=== PATIENT | female | born 1995 | race Caucasian/White ===

== ENCOUNTER 2019-02-05 22:06 | Emergency (ER) | payer OTHER ==
[2019-02-05 22:22] VITALS: BP 117/75; PULSE 82; TEMP 98.4; BMI 29.7
--- NOTE | 2019-02-05 23:32 | PDOC ---
History of Present Illness - General Chief Complaint: Cold Symptoms Stated Complaint: INFECTION Time Seen by Provider: 02/05/19 23:09 History Source: Patient, Significant Other (Boyfriend present at bedside.) Exam Limitations: No Limitations - History of Present Illness Initial Comments: HPI: 23 y/o female presenting to [facility] ER complaining of bilateral red eyes with purulent discharge. Showed picture of discharge on cell phone. Endorses blurry vision and discomfort with eye movement. Wears contacts daily. Changed this afternoon thinking this was the cause of her symptoms. No change in symptoms. Remote h/o of pink eye but states this feels different. Endorses recent URI symptoms with sore throat and bilateral swollen lymph nodes. Symptoms resolved yesterday. [place]s [place] clinic [place]. Medical Hx: - Eczema - Seasonal Allergies Surgical Hx: - (07/2015) Past History - Past Medical History Allergies/Adverse Reactions: Allergies Allergy/AdvReac Type Severity Reaction Status Date / Time contact metal agent Allergy Mild Verified 02/05/19 23:15 pollen extracts Allergy Mild Verified 02/05/19 23:14 shellfish derived Allergy Mild Verified 02/05/19 23:14 Home Medications: Ambulatory Orders Ciprofloxacin 0.3% Eye Drops [Ciloxan 0.3% Eye Drops --] 1 drop OU ASDIR 7 Days #1 bottle 02/05/19 COPD: No Other medical history: eczema - Suicide/Smoking/Psychosocial Hx Smoking History: Never smoked Hx Alcohol Use: No Drug/Substance Use Hx: No Review of Systems - Review of Systems Able to Perform ROS?: Yes Comments:: In addition to that documented in the HPI above, the additional ROS was obtained : Constitutional: Denies fevers or chills ENMT: Denies acute sore throat CV: Denies chest pain Resp: Denies SOB GI: Denies vomiting or diarrhea : Denies dysuria, hematuria, or urinary frequency *Physical Exam - Vital Signs Last Vital Signs Temp Pulse Resp BP Pulse Ox 98.4 F 82 20 117/75 97 02/05/19 22:20 02/05/19 22:20 02/05/19 22:20 02/05/19 22:20 02/05/19 22:20 - Physical Exam Comments: Constitutional: Well-developed, well-nourished adult female in no acute distress or obvious discomfort. Found sitting upright on edge of hospital chair. Alert and oriented x4. Answered all questions appropriately and completely. Speech was non-labored, non-pressured. Head: Normocephalic. No obvious external signs of trauma. No frontal or maxillary sinus tenderness. Eyes: Bilateral injected conjunctiva with trace amount of clear discharge. Pupils 4mm and PERRL. EOMI with reported pain. Conjunctiva moist. Ears: Hearing grossly intact. Nose: No nasal discharge. Throat: Oral cavity and pharynx normal. No inflammation, swelling, exudate, or lesions. Teeth and gingiva in good general condition. Neck: Supple, trachea is midline. Cardiovascular / Chest: Regular rate and regular rhythm. No murmur, rubs, clicks, or gallops. Peripheral pulses: radial pulses full. Respiratory: Breathing unlabored. Equal chest rise and fall. Clear to auscultation bilaterally. No stridor, no wheezing, no rhonchi. Skin: Warm, dry, and intact. Psych: Affect: appropriate. Mood: normal. Medical Decision Making - Medical Decision Making *Reviewed vital signs, nursing notes, and prior visit documentation (if available). 23 y/o female presenting for bilateral conjunctival injection with picture of purulent discharge but watery discharge on exam. Suspect likely bacterial conjunctivitis. Low suspicion for foreign body or toxic inflammatory condition. Afebrile. Vitals unremarkable for hypotension or tachycardia. Low suspicion for systemic infection. Will prescribe ciprofloxacin ophthalmic solution and encourage pt to follow up with eye clinic of record. Will encourage pt to remove contacts for the next 7 to 10 days. *DC/Admit/Observation/Transfer Diagnosis at time of Disposition: Conjunctivitis, acute, bilateral Qualifiers: Acute conjunctivitis type: unspecified Qualified Code(s): H10.33 - Unspecified acute conjunctivitis, bilateral - Discharge Dispostion Disposition: HOME Condition at time of disposition: Good Decision to Admit order: No - Prescriptions Prescriptions: Ciprofloxacin 0.3% Eye Drops [Ciloxan 0.3% Eye Drops --] 1 drop OU ASDIR 7 Days #1 bottle - Referrals Referrals: ON STAFF,NOT [Primary Care Provider] - - Patient Instructions Printed Discharge Instructions: DI for Conjunctivitis Additional Instructions: You were seen today for red eyes with purulent discharge. Your symptoms are likely from a bacterial eye infection. You need to take your contacts out for the next 7 to 10 days. Be sure to wash your hands frequently to prevent the spread of the infection. have sent a prescription for an antibiotic eye drop to your pharmacy. Take as directed on the package insert. You can take over the counter Tylenol or Advil as needed for pain. Take as directed on the package insert. Do not exceed the recommended dosage. Follow up with your eye doctor within the next week to make sure you are healing. Go to the nearest emergency department if your condition worsens or you feel like you need additional emergency evaluation. Print Language: UZBEK - Post Discharge Activity
--- NOTE | 2019-02-05 23:57 | PDOC ---
Attending Attestation - HPI HPI: 02/06/19 00:09 The patient is a 23 year old female, with no significant past medical history, who presents to the emergency department with bilateral conjunctival injection and purulent drainage. She reports associated headache surrounding her eyes bilaterally. She states she wears contacts daily. The patient denies chest pain, shortness of breath, headache and dizziness. The patient denies fever, chills, nausea, vomit, diarrhea and constipation. The patient denies dysuria, frequency, urgency and hematuria. - Physicial Exam PE: 02/06/19 00:09 ROS: A complete review of 10 out of 10 review of systems is taken and is negative apart from what is previously mentioned below and in the HPI. Physical Exam Vitals: Triage vital signs reviewed General Appearance: No acute distress, well nourished, well developed Head: Atraumatic Eyes: (+) bilateral conjunctival injection. Pupils equal reactive round, extraocular movement intact Neck: Supple; No nuchal rigidity Chest Wall: Nontender Cardiac: Regular rate and rhythm, no murmurs, no rubs, no gallops Lungs: Clear to auscultation bilateral, good air movement bilaterally Abdomen: Soft, nondistended, normal bowel sounds, nontender to palpation Extremities: Full range of motion to all extremities, no cyanosis, clubbing, or edema Skin: Warm and dry, no rashes or lesions, no rash, no petechiae Neuro: AOX3; Cranial Nerves 2-12 grossly intact, Strength intact to all extremities, Sensation intact to all extremities, gait normal <Consuelo Mendiola - Last Filed: 02/06/19 00:09> - Resident Resident Name: Holden Noble - ED Attending Attestation I have performed the following: I have examined & evaluated the patient, The case was reviewed & discussed with the resident, I agree w/resident's findings & plan, Exceptions are as noted - Medical Decision Making 02/06/19 01:35 23 years old with bilateral conjunctivitis now with purulent discharge Given history of contact lens use we'll treat with ophthalmic ciprofloxacin Patient will discontinue contact lens use until infection is cleared Findings, need for follow-up and strict return instructions discussed with patient. <Vini Corral - Last Filed: 02/06/19 01:35> Attestations - Attestations 02/06/19 00:09 Documentation prepared by Consuelo Mendiola, acting as certified medical coding specialist for Vini Corral MD <Consuelo Mendiola - Last Filed: 02/06/19 00:09>
== END 2019-02-06 00:09 | disposition home or self-care (01) ==
LOC: JERFT 22:06 → JER 22:06
DX: H10.33 Unspecified acute conjunctivitis, bilateral (principal)
CPT/HCPCS: 99281-25

== ENCOUNTER 2019-03-06 23:08 | Emergency (ER) | payer OTHER ==
[2019-03-06 23:25] VITALS: BP 113/73; PULSE 57; TEMP 98.2; BMI 31.1
--- NOTE | 2019-03-07 00:49 | PDOC ---
History of Present Illness - General Chief Complaint: Eye Problem Stated Complaint: STY IN HER EYE LID Time Seen by Provider: 03/07/19 00:15 - History of Present Illness Initial Comments: 03/07/19 00:45 23 yo F with no significant pmh who p/w right lower eyelid swelling. Patient reports onset of right lower eyelid swelling beginning 03/04/19. Reports lead java software engineer visit today and advised to come to ED. Pt. unable to f/w ophthamology. Seen at urgent care and prescibed erythromycin ointment for involved eyelid swelling. Denies h/o similar symptoms. Also endorses progressive blurry vision, pain with eye movements, and excessive tearing. Denies drainage or discharge from eye. Wears corrective lenses. Attempted warm compresses x 2 days with absent relief. Patient denies SOW, palpitations, cough, wheezing, orthopena, PND, leg swelling/ pain, N/V, F,C, CP, SOB, urinary complaints, hematuria, BPR, abdominal pain, diarrhea, constipation, lightheadedness, weakness, sensory changes. PMHx: as noted above ROS: as noted Allergies: NKDA Past History - Past Medical History Allergies/Adverse Reactions: Allergies Allergy/AdvReac Type Severity Reaction Status Date / Time contact metal agent Allergy Mild Verified 03/07/19 01:44 pollen extracts Allergy Mild Verified 03/07/19 01:44 shellfish derived Allergy Mild Verified 03/07/19 01:44 Home Medications: Ambulatory Orders Cephalexin Monohydrate [Keflex -] 500 mg PO BID #14 capsule MDD 2 tab 03/07/19 COPD: No - Suicide/Smoking/Psychosocial Hx Smoking History: Never smoked Have you smoked in the past 12 months: No Information on smoking cessation initiated: No Hx Alcohol Use: No Drug/Substance Use Hx: No Review of Systems - Review of Systems Comments:: 03/07/19 00:59 GENERAL/CONSTITUTIONAL: No fever or chills. No weakness. HEAD, EYES, EARS, NOSE AND THROAT: + R eye lower lid swelling, change in vision. No ear pain or discharge. No sore throat. CARDIOVASCULAR: No chest pain or shortness of breath RESPIRATORY: No cough, wheezing, or hemoptysis. GASTROINTESTINAL: No nausea, vomiting, diarrhea or constipation. GENITOURINARY: No dysuria, frequency, or change in urination. MUSCULOSKELETAL: No joint or muscle swelling or pain. No neck or back pain. SKIN: No rash NEUROLOGIC: No headache, vertigo, loss of consciousness, or change in strength/ sensation. ENDOCRINE: No increased thirst. No abnormal weight change HEMATOLOGIC/LYMPHATIC: No anemia, easy bleeding, or history of blood clots. ALLERGIC/IMMUNOLOGIC: No hives or skin allergy. *Physical Exam - Vital Signs Last Vital Signs Temp Pulse Resp BP Pulse Ox 98.2 F 57 L 18 113/73 100 03/06/19 23:22 03/06/19 23:22 03/06/19 23:22 03/06/19 23:22 03/06/19 23:22 - Physical Exam Comments: 03/07/19 01:02 GENERAL: Awake, alert, and fully oriented, in no acute distress HEAD: No signs of trauma, normocephalic, atraumatic EYES: ttp, erythema, induration with yellow color change, at R medial lower lid margin. Asbent propotsisi, drainage or discharge, or erythema or swelling of surrounding tissues. PERRLA, EOMI, sclera anicteric, conjunctiva clear. 20/70 OD , 20/20 OS. ENT: Auricles normal inspection, hearing grossly normal, nares patent, oropharynx clear without exudates. Moist mucosa NECK: Normal ROM, supple, no lymphadenopathy, JVD, or masses LUNGS: No distress, speaks full sentences, clear to auscultation bilaterally HEART: Regular rate and rhythm, normal S1 and S2, no murmurs, rubs or gallops, peripheral pulses normal and equal bilaterally. ABDOMEN: Soft, nontender, normoactive bowel sounds. No guarding, no rebound. No masses EXTREMITIES : Normal inspection, Normal range of motion, no edema. No clubbing or cyanosis. NEUROLOGICAL: Cranial nerves II through XII grossly intact. Normal speech, normal gait, no focal sensorimotor deficits SKIN: Warm, Dry, normal turgor, no rashes or lesions noted Medical Decision Making - Medical Decision Making 03/07/19 00:58 23 yo F with no significant pmh who p/w right lower eyelid swelling, pain with EOM, and excessive tearing. Likely hordelum (stye) vs. chalazion. Vitals wnl, AF , A&OX3. Patient with ttp, erythema, induration with yellow color change, at R medial lower lid margin. Asbent drainage or discharge, or erythema or swelling of surrounding tissues. Although lack of proptosis, diplopia, chemosis, globe displacemnt there is pain with EOM, and vision 20/70 OID, and 20/20 OS. Low suspicion periorobital and orbital cellulitis. Failed compress therapy and topical antibacterial. Will prescribe oral Augmentin. 03/07/19 01:11 ED Course: Keflex sent to pharmacy 03/07/19 01:35 Patient advised to f/u opthamology Urine preg: neg Stable for d/c with return precautions. *DC/Admit/Observation/Transfer Diagnosis at time of Disposition: Hordeolum externum (stye) Qualifiers: Laterality: right Eyelid: lower Qualified Code(s): H00.012 - Hordeolum externum right lower eyelid - Discharge Dispostion Condition at time of disposition: Stable Decision to Admit order: No - Prescriptions Prescriptions: Cephalexin Monohydrate [Keflex -] 500 mg PO BID #14 capsule MDD 2 tab - Referrals Referrals: Juan Lemus [Non Staff, Medical] - - Patient Instructions Printed Discharge Instructions: DI for Hordeolum Additional Instructions: Please return to the emergency department with any new or worsening symptoms or concerns. Please follow up with your primary care physician and opthamologist within 72 hours. Please take Keflex two times a day for 1 week. Continue with warm compresses of the eye daily every 2-3 hours. Continue with Motrin 600 mg every 4-6 hours. - Post Discharge Activity
[2019-03-07] MEDS ORDERED: AMOX TR/POT CLAV 875MG/125MG TABLETS (FP) PO ONE (01:07)
[2019-03-07] MEDS ORDERED: AMOX TR/POT CLAV 875MG/125MG TABLETS (FP) ONE (01:32)
[2019-03-07 01:50] LABS: URINE APPEARANCE CLEAR; URINE BILIRUBIN NEGATIVE (NEGATIVE); URINE COLOR DK YELLOW; URINE GLUCOSE (UA) NEGATIVE (NEGATIVE); URINE KETONE NEGATIVE (NEGATIVE); URINE LEUK ESTERASE NEGATIVE (NEGATIVE); URINE NITRITE NEGATIVE (NEGATIVE); URINE PROTEIN NEGATIVE (NEGATIVE); URINE UROBILINOGEN 0.2 mg/dL (0.2-1.0)
[2019-03-07 01:53] LABS: HCG,QUALITATIVE URINE Negative
--- NOTE | 2019-03-07 01:56 | PDOC ---
Documentation entered by Mahogany Solis SCRIBE, acting as scribe for Amarilys Fernando MD. Aamrilys Fernando MD: This documentation has been prepared by the scribe, Mahogany Solis SCRIBE, under my direction and personally reviewed by me in its entirety. I confirm that the documentation accurately reflects all work, treatment, procedures, and medical decision making performed by me. Attending Attestation - Resident Resident Name: Nick Wellington - ED Attending Attestation I have performed the following: I have examined & evaluated the patient, The case was reviewed & discussed with the resident, I agree w/resident's findings & plan - HPI HPI: 03/07/19 01:52 Ms. Klein is a 23 year old female with no reported past medical history presents to the emergency department with right lower eyelid swelling. The patient presents with 3 days of swelling to the right lower/inner eyelid, which initially started with a pimple in the area.. The patient reports following up at an , where she was prescribed erythromycin ointment. The patient reports seeing her tangible personal property appraiser, who referred the patient to the ER. Denies blurry vision, diplopia, or changes in vision. no fever or chills. some pain with eye movements. no active drainage from site. unable to follow up with ophtho as outpatient 03/07/19 01:57 - Physicial Exam PE: 03/07/19 01:53 NAD, well appearing, EOMI and PERRL. rt inner lower medial canthus site with erythema, tenderness and swelling. no proptosis. no nystagmus. soft globe. visual acuity bilaterally intact, 20/70 in right, 20/20 in left. CN II-XII grossly intact. neck supple. no respiratory distress. 2+ pulses throughout. WWP. - Medical Decision Making 03/07/19 01:54 hpi as documented VS reviewed wnl. no fever no ocular involvement, no orbital cellulitis appears to be infected stye. no indication for drainage, defer to outpatient ophtho referral oral keflex x 1 week course, can c/w erythromycin topically. cover for possible early preseptal cellulitis/infected stye. warm compresses to area, Q2-4 hr, analgesia with nsaids for antiinflammatory component. Pt to be discharged in stable condition. Patient and family made aware of impression and plan, return precautions discussed (including but not limited to worsening pain or symptoms), fevers, or signs of infection, chest pain, respiratory distress, inability to tolerate oral intake, dehydration, syncope, or neurologic changes). Follow up with PMD and/or specialist as recommended, follow up information provided - recommended hot iron worker doctor Dr Reed, take medications as instructed for duration of time. continue with supportive care, avoid triggers and precipitants. All questions answered to patient's satisfaction and expressed understanding and comfort with this. Patient does not suffer from an acute life-threatening medical condition at this time she is safe for outpatient follow-up. 03/07/19 01:57
== END 2019-03-07 02:27 | disposition home or self-care (01) ==
LOC: JER 23:08
DX: H00.012 Hordeolum externum right lower eyelid (principal)
CPT/HCPCS: 81003; 84703; 99281-25

== ENCOUNTER 2019-10-09 13:08 | Emergency (ER) | payer OTHER ==
[2019-10-09 13:40] VITALS: BP 121/63; PULSE 79; TEMP 98.3; BMI 33.3
[2019-10-09] MEDS ORDERED: SUMAtriptan SUCCINATE 50 MG TABLET PO SCH (14:45)
[2019-10-09] MEDS ORDERED: SUMAtriptan SUCCINATE 50 MG TABLET ONE (14:51)
--- NOTE | 2019-10-09 14:55 | PDOC ---
History of Present Illness - General Chief Complaint: Headache Stated Complaint: MIGRAINE HEADACHE Time Seen by Provider: 10/09/19 14:11 History Source: Patient Exam Limitations: Clinical Condition - History of Present Illness Initial Comments: 10/09/19 14:49 Patient with past medical history of blood clot on Lovenox and 12 weeks presented with complaint of 2-day history of persistent headache with photophobia. Patient reports taking Tylenol yesterday for headache but headache has been persistent. Reported headache was intermittent yesterday but has been constant today. Patient also reported spinning sensation since today. Denies head trauma or lightheadedness. Patient also report intermittent sharp abdominal pain for 2 days now. Denies vaginal bleeding, discharge. Denies urinary frequency, dysuria or burning with urination. Denies any other symptoms Timing/Duration: reports: 24 hours Past History - Past Medical History Allergies/Adverse Reactions: Allergies Allergy/AdvReac Type Severity Reaction Status Date / Time contact metal agent Allergy Mild Verified 03/07/19 01:44 pollen extracts Allergy Mild Verified 10/09/19 13:35 shellfish derived Allergy Mild Verified 03/07/19 01:44 blue aqua gel Allergy Uncoded 10/09/19 13:36 Home Medications: Ambulatory Orders Enoxaparin Sodium [Lovenox] 100 mg SQ ASDIR 10/09/19 Sumatriptan Succinate [Imitrex] 25 mg PO Q6H PRN #20 tablet 10/09/19 COPD: No Other medical history: dvt liver and ovary - Psycho Social/Smoking Cessation Hx Smoking History: Never smoked Have you smoked in the past 12 months: No Hx Alcohol Use: No Drug/Substance Use Hx: No Review of Systems - Review of Systems Able to Perform ROS?: Yes Is the patient limited Georgian proficient: No Constitutional: No: Chills, Fever, Malaise HEENTM: Yes: Symptoms Reported, See HPI, Other (photophobia). No: Eye Pain, Blurred Vision, Tearing, Recent change in vision, Double Vision, Cataracts, Ear Pain, Ocular Prothesis, Ear Discharge, Nose Pain, Nose Congestion, Tinnitus, Nose Bleeding, Hearing Loss, Throat Pain, Throat Swelling, Mouth Pain, Dental Problems, Difficulty Swallowing, Mouth Swelling Respiratory: No: Symptoms reported, See HPI, Cough, Orthopnea, Shortness of Breath, SOB with Exertion, SOB at Rest, Stridor, Wheezing, Productive cough, Hemoptysis, Other Cardiac (ROS): No: Symptoms Reported, See HPI, Chest Pain, Edema, Irregular Heart Rate, Lightheadedness, Palpitations, Syncope, Chest Tightness, Other ABD/GI: Yes: Symptoms Reported, Nausea, Abdominal cramping (intermittent sharp lower abd pains). No: Vomiting : No: Symptoms Reported, Burning, Dysuria, Discharge, Frequency, Urgency Musculoskeletal: No: Symptoms Reported Integumentary: No: Symptoms Reported Neurological: Yes: Symptoms reported, See HPI, Headache. No: Numbness, Paresthesia, Pre-Existing Deficit, Seizure, Unsteady Gait, Ataxia, Dizziness All Other Systems: Reviewed and Negative *Physical Exam - Vital Signs Last Vital Signs Temp Pulse Resp BP Pulse Ox 98.3 F 79 18 121/63 98 10/09/19 13:38 10/09/19 13:38 10/09/19 13:38 10/09/19 13:38 10/09/19 13:38 - Physical Exam 10/09/19 14:54 GENERAL: Well developed, well nourished. Awake and alert. No acute distress. HEENT: Normocephalic, atraumatic. PERRLA, EOMI. No conjunctival pallor. Sclera are non- icteric. Moist mucous membranes. Oropharynx is clear. NECK: Supple. Full ROM. No JVD. Carotid pulses 2+ and symmetric, without bruits. No thyromegaly. No lymphadenopathy. CARDIOVASCULAR: Regular rate and rhythm. No murmurs, rubs, or gallops. Distal pulses are 2+ and symmetric. PULMONARY: No evidence of respiratory distress. Lungs clear to auscultation bilaterally. No wheezing, rales or rhonchi. ABDOMINAL: Soft. Non-tender. Non-distended. No rebound or guarding. No organomegaly. Normoactive bowel sounds. MUSCULOSKELETAL Normal range of motion at all joints. No bony deformities or tenderness. No CVA tenderness. EXTREMITIES: No cyanosis. No clubbing. No edema. No calf tenderness. SKIN: Warm and dry. Normal capillary refill. No rashes. No jaundice. NEUROLOGICAL: Alert, awake, appropriate. Cranial nerves 2-12 intact. No motor deficits in the in face, upper extremities and lower extremities. Normal speech. Toes are down- going bilaterally. Gait is normal without ataxia. PSYCHIATRIC: Cooperative. Good eye contact. Appropriate mood and affect. General Appearance: Yes: Nourished, Appropriately Dressed. No: Apparent Distress ED Treatment Course - RADIOLOGY Radiology Studies Ordered: Category Date Time Status <14WKS US [US] Stat Ultrasound 10/09/19 14:45 Ordered Medical Decision Making - Medical Decision Making 10/09/19 14:51 Patient with past medical history of blood clot on Lovenox and 12 weeks presented with complaint of 2-day history of persistent headache with photophobia. Patient reports taking Tylenol yesterday for headache but headache has been persistent. Reported headache was intermittent yesterday but has been constant today. Patient also reported spinning sensation since today. Denies head trauma or lightheadedness. Patient also report intermittent sharp abdominal pain for 2 days now. Denies vaginal bleeding, discharge. Denies urinary frequency, dysuria or burning with urination. Denies any other symptomsClinical exam unremarkable with normal neuro exam. Symptoms likely migraine for with aura. Imitrex 50 milligrams p.o. ordered for headache. Abdominal ultrasound ordered to evaluate . Reassess after half an hour 10/09/19 16:08 Abdominal ultrasound shows live IUP of 13 weeks with FH. Patient reported complete improvement to headaches with Imitrex and Zofran. Patient stable for discharge on Imitrex as needed for headache with [employer] follow-up. Patient advised to come to the emergency room immediately if worsening headache with dizziness or any new symptoms Discharge - Discharge Information Problems reviewed: Yes Clinical Impression/Diagnosis: 9-13 weeks gestation of Migraine headache with aura Qualifiers: Status migrainosus presence: without status migrainosus Intractability: not intractable Qualified Code(s): G43.109 - Migraine with aura, not intractable, without status migrainosus Condition: Improved Disposition: HOME - Admission No - Additional Discharge Information Prescriptions: Sumatriptan Succinate [Imitrex] 25 mg PO Q6H PRN #20 tablet PRN Reason: headache - Follow up/Referral - Patient Discharge Instructions Patient Printed Discharge Instructions: DI for Hormonal and Tension Headaches Additional Instructions: Abdominal ultrasound was normal and showed 13 weeks with likely baby. Your headaches likely caused by hormonal change from . Take prescribed medication as needed for headache. Follow-up with your [employer]LE P[employer]ER. Come back to emergency room if worsening headache with dizziness with nausea vomiting - Post Discharge Activity
[2019-10-09] MEDS ORDERED: ONDANSETRON *ODT* 4 MG TABLET SL ONE (15:39)
[2019-10-09] MEDS ORDERED: ONDANSETRON *ODT* 4 MG TABLET ONE (15:40)
== END 2019-10-09 16:29 | disposition home or self-care (01) ==
LOC: JERFT 13:08 → JER 13:08 → JERFT 16:29
DX: O26.891 Other specified pregnancy related conditions, first trimester (principal); G43.109 Migraine with aura, not intractable, without status migrainosus; Z86.718 Personal history of other venous thrombosis and embolism; Z3A.12 12 weeks gestation of pregnancy; Z91.013 Allergy to seafood; Z91.048 Other nonmedicinal substance allergy status
CPT/HCPCS: 76801-TC; 99281-25; Q0162

== ENCOUNTER 2019-11-17 19:12 | Emergency (ER) | payer OTHER ==
--- NOTE | 2019-11-17 20:00 | PDOC ---
Rapid Medical Evaluation Medical Evaluation: Allergies Allergy/AdvReac Type Severity Reaction Status Date / Time contact metal agent Allergy Mild Verified 03/07/19 01:44 pollen extracts Allergy Mild Verified 10/09/19 13:35 shellfish derived Allergy Mild Verified 03/07/19 01:44 blue aqua gel Allergy Uncoded 10/09/19 13:36 11/17/19 19:49 I have performed a brief in-person evaluation of this patient. The patient presents with a chief complaint of: Flu + at [facility] today, here w/ worsening of sxs. State she passed out while in bed this afternoon. Currently 19 weeks . No abd pain, n/v/f/c. H/o blood clots (liver and "top" of ovary), on lovenox since last April Pertinent physical exam findings:Stable, christina uncomfortable I have ordered the following:labs The patient will proceed to the ED for further evaluation Discharge Disposition - Diagnosis Flu - Referrals - Patient Instructions - Post Discharge Activity
[2019-11-17 20:02] VITALS: BMI 30.9
[2019-11-17] MEDS ORDERED: SODIUM CHLORIDE 1,000 ML IV STA ×2 (21:14→23:19)
[2019-11-17] MEDS ORDERED: ACETAMINOPHEN 1000 MG/100 ML VIAL (NON FORMULARY) IVPB ONE (21:14)
[2019-11-17] MEDS ORDERED: ACETAMINOPHEN INJECTION 100 ML IVPB ONE (21:32)
[2019-11-17 21:48] LABS: BASO % 0.8 % (0-2.0); EOS % 2.3 % (0-4.5); HEMOGLOBIN 11.3 GM/dL (10.7-15.3); LYMPH % 14.3 % (8-40); MCH 30.1 pg (25.7-33.7); MCHC 33.2 g/dl (32.0-36.0); MEAN CELL VOLUME 90.8 fl (80-96); MEAN PLT VOLUME 8.1 fl (7.5-11.1); MONO % 7.6 % (3.8-10.2); PLATELET COUNT 260 K/MM3 (134-434); RBC 3.75 M/mm3 (3.60-5.2); RDW 13.7 % (11.6-15.6); WHITE BLOOD COUNT 8.4 K/mm3 (4.0-10.0)
[2019-11-17] MEDS ORDERED: LEVALBUTEROL HCL 0.31 MG/3 ML VIAL.NEB IH ONE (22:03)
[2019-11-17 22:18] LABS: ALK PHOS 101 U/L (45-117); ANION GAP 7 MMOL/L (8-16); BILIRUBIN,TOTAL < 0.1 mg/dL (0.2-1); BLOOD UREA NITROGEN 6.3 mg/dL (7-18); CALCIUM 8.6 mg/dL (8.5-10.1); CHLORIDE 107 mmol/L (98-107); CO2 25 mmol/L (21-32); CREATININE 0.5 mg/dL (0.55-1.3); GLUCOSE,RANDOM 88 mg/dL (74-106); POTASSIUM 3.9 mmol/L (3.5-5.1); SGOT/AST 13 U/L (15-37); SGPT/ALT 38 U/L (13-61); SODIUM 138 mmol/L (136-145); TOT PROT 6.6 g/dl (6.4-8.2)
[2019-11-17 22:29] LABS: PH,URINE 7.5 (5.0-8.0); URINE APPEARANCE TURBID; URINE BILIRUBIN NEGATIVE (NEGATIVE); URINE COLOR YELLOW; URINE GLUCOSE (UA) NEGATIVE (NEGATIVE); URINE KETONE NEGATIVE (NEGATIVE); URINE LEUK ESTERASE NEGATIVE (NEGATIVE); URINE NITRITE NEGATIVE (NEGATIVE); URINE PROTEIN NEGATIVE (NEGATIVE)
[2019-11-17] MEDS ORDERED: METOCLOPRAMIDE HCL INJECTION 10 MG/2 ML VIAL IVPB ONE (23:19)
--- NOTE | 2019-11-17 23:19 | PDOC ---
History of Present Illness <AidaDorotaAgustina - Last Filed: 11/18/19 00:33> <Madina Stout - Last Filed: 11/18/19 01:36> - General Chief Complaint: Cold Symptoms Stated Complaint: FLU Time Seen by Provider: 11/17/19 20:01 Past History - Past Medical History COPD: No - Psycho Social/Smoking Cessation Hx Smoking History: Never smoked Have you smoked in the past 12 months: No Information on smoking cessation initiated: No Hx Alcohol Use: No Drug/Substance Use Hx: No <AidaDorotaAgustina - Last Filed: 11/18/19 00:33> <Madina Stout - Last Filed: 11/18/19 01:36> - Past Medical History Allergies/Adverse Reactions: Allergies Allergy/AdvReac Type Severity Reaction Status Date / Time contact metal agent Allergy Mild Verified 11/17/19 20:02 pollen extracts Allergy Mild Verified 11/17/19 20:02 shellfish derived Allergy Mild Verified 11/17/19 20:02 blue aqua gel Allergy Uncoded 11/17/19 20:02 Home Medications: Ambulatory Orders Enoxaparin Sodium [Lovenox] 100 mg SQ ASDIR 10/09/19 Sumatriptan Succinate [Imitrex] 25 mg PO Q6H PRN #20 tablet 10/09/19 Albuterol Sulfate Inhaler - [Ventolin HFA Inhaler -] 1 - 2 inh PO Q4H #1 inhaler 11/18/19 Metoclopramide HCl [Reglan -] 10 mg PO TID #21 tablet 11/18/19 *Physical Exam - Vital Signs Last Vital Signs Temp Pulse Resp BP Pulse Ox 98.1 F 96 H 18 113/71 100 11/17/19 19:59 11/17/19 19:59 11/17/19 19:59 11/17/19 19:59 11/17/19 19:59 <Agustina Parra - Last Filed: 11/18/19 00:33> - Vital Signs Last Vital Signs Temp Pulse Resp BP Pulse Ox 97.8 F 93 H 18 114/71 99 11/18/19 01:03 11/18/19 01:03 11/18/19 01:03 11/18/19 01:03 11/18/19 01:03 <Madina Stout - Last Filed: 11/18/19 01:36> ED Treatment Course - LABORATORY CBC & Chemistry Diagram: 11/17/19 21:40 11/17/19 21:40 - ADDITIONAL ORDERS Additional order review: Laboratory Results 11/17/19 11/17/19 22:20 21:40 Sodium 138 Potassium 3.9 Chloride 107 Carbon Dioxide 25 Anion Gap 7 L BUN 6.3 L Creatinine 0.5 L Est GFR (CKD-EPI)AfAm 155.90 Est GFR (CKD-EPI)NonAf 134.52 Random Glucose 88 Calcium 8.6 Total Bilirubin < 0.1 L AST 13 L ALT 38 Alkaline Phosphatase 101 Total Protein 6.6 Albumin 3.0 L Urine Color Yellow Urine Appearance Turbid Urine pH 7.5 D Ur Specific [place] 1.019 Urine Protein Negative Urine Glucose (UA) Negative Urine Ketones Negative Urine Blood Negative Urine Nitrite Negative Urine Bilirubin Negative Urine Urobilinogen 1.0 Ur Leukocyte Esterase Negative 11/17/19 21:40 RBC 3.75 MCV 90.8 MCHC 33.2 RDW 13.7 MPV 8.1 Neutrophils % 75.0 Lymphocytes % 14.3 Monocytes % 7.6 Eosinophils % 2.3 Basophils % 0.8 - Medications Given in the ED: ED Medications Discontinued Medications Generic Name Dose Route Start Last Admin Trade Name Sam PRN Reason Stop Dose Admin Acetaminophen 1,000 mg 11/17/19 21:14 11/17/19 21:43 Ofirmev Injection - IVPB 11/17/19 21:15 1,000 mg ONCE ONE Administration Sodium Chloride 1,000 mls @ 1,000 mls/hr 11/17/19 21:14 11/17/19 22:15 Normal Saline - IV 11/17/19 22:13 1,000 mls/hr ASDIR STA Administration Levalbuterol HCl 0.31 mg 11/17/19 22:03 11/17/19 23:14 Xopenex IH 11/17/19 22:04 0.31 mg ONCE ONE Administration <Agustina Parra - Last Filed: 11/18/19 00:33> - LABORATORY CBC & Chemistry Diagram: 11/17/19 21:40 11/17/19 21:40 - ADDITIONAL ORDERS Additional order review: Laboratory Results 11/17/19 11/17/19 22:20 21:40 Sodium 138 Potassium 3.9 Chloride 107 Carbon Dioxide 25 Anion Gap 7 L BUN 6.3 L Creatinine 0.5 L Est GFR (CKD-EPI)AfAm 155.90 Est GFR (CKD-EPI)NonAf 134.52 Random Glucose 88 Calcium 8.6 Total Bilirubin < 0.1 L AST 13 L ALT 38 Alkaline Phosphatase 101 Total Protein 6.6 Albumin 3.0 L Urine Color Yellow Urine Appearance Turbid Urine pH 7.5 D Ur Specific [place] 1.019 Urine Protein Negative Urine Glucose (UA) Negative Urine Ketones Negative Urine Blood Negative Urine Nitrite Negative Urine Bilirubin Negative Urine Urobilinogen 1.0 Ur Leukocyte Esterase Negative 11/17/19 21:40 RBC 3.75 MCV 90.8 MCHC 33.2 RDW 13.7 MPV 8.1 Neutrophils % 75.0 Lymphocytes % 14.3 Monocytes % 7.6 Eosinophils % 2.3 Basophils % 0.8 - Medications Given in the ED: ED Medications Discontinued Medications Generic Name Dose Route Start Last Admin Trade Name Freq PRN Reason Stop Dose Admin Acetaminophen 1,000 mg 11/17/19 21:14 11/17/19 21:43 Ofirmev Injection - IVPB 11/17/19 21:15 1,000 mg ONCE ONE Administration Diphenhydramine HCl 12.5 mg 11/17/19 23:19 11/17/19 23:25 Benadryl Injection - IVPB 11/17/19 23:20 12.5 mg ONCE ONE Administration Sodium Chloride 1,000 mls @ 1,000 mls/hr 11/17/19 21:14 11/17/19 22:15 Normal Saline - IV 11/17/19 22:13 1,000 mls/hr ASDIR STA Administration Sodium Chloride 1,000 mls @ 1,000 mls/hr 11/17/19 23:19 11/17/19 23:25 Normal Saline - IV 11/18/19 00:18 1,000 mls/hr ASDIR STA Administration Levalbuterol HCl 0.31 mg 11/17/19 22:03 11/17/19 23:14 Xopenex IH 11/17/19 22:04 0.31 mg ONCE ONE Administration Metoclopramide HCl 10 mg 11/17/19 23:19 11/17/19 23:25 Reglan Injection - IVPB 11/17/19 23:20 10 mg ONCE ONE Administration <Madina Stout - Last Filed: 11/18/19 01:36> Discharge - Admission No <Agustina Parra - Last Filed: 11/18/19 00:33> - Discharge Information Problems reviewed: Yes <Madina Stout - Last Filed: 11/18/19 01:36> - Discharge Information Clinical Impression/Diagnosis: Flu, Dehydration Condition: Stable Disposition: HOME - Additional Discharge Information Prescriptions: Albuterol Sulfate Inhaler - [Ventolin HFA Inhaler -] 1 - 2 inh PO Q4H #1 inhaler Metoclopramide HCl [Reglan -] 10 mg PO TID #21 tablet - Patient Discharge Instructions Patient Printed Discharge Instructions: DI for Influenza -- Adult Additional Instructions: You have the flu. This is a virus that will get better on its own in approximately 7-10 days. You will most likely have a fever for 7-10 days because of the flu. This is to be expected. You may take the Reglan every 8 hours as needed for nausea. Use the albuterol inhaler every 4 hours as needed for shortness of breath. Drink plenty of fluids to prevent dehydration and get plenty of rest. Warm tea and cough drops may help your symptoms as well. Take Tylenol as directed for pain and fever. Take all other medications as prescribed. Follow up with your primary care doctor this week Return to the ED for difficulty breathing, shortness of breath, weakness, or if you have any other changes in your symptoms. - Post Discharge Activity
[2019-11-17] MEDS ORDERED: METOCLOPRAMIDE HCL INJECTION 10 MG/2 ML VIAL ONE (23:27)
[2019-11-18 01:04] VITALS: BP 114/71; PULSE 93; TEMP 97.8
--- NOTE | 2019-11-18 11:49 | EKG ---
Test Reason : Blood Pressure : / mmHG Vent. Rate : 097 BPM Atrial Rate : 097 BPM P-R Int : 146 ms QRS Dur : 074 ms QT Int : 344 ms P-R-T Axes : 039 031 012 degrees QTc Int : 436 ms NORMAL SINUS RHYTHM POSSIBLE LEFT ATRIAL ENLARGEMENT BORDERLINE ECG NO PREVIOUS ECGS AVAILABLE Confirmed by OMID SAHU MD ([id number]) on 11/18/2019 11:49:44 AM Referred By: Confirmed By:OMID SAHU MD
== END 2019-11-18 00:45 | disposition home or self-care (01) ==
LOC: JER 19:12
PROC: 3E0F7GC Introduction of Other Therapeutic Substance into Respiratory Tract, Via Natural or Artificial Opening (ICD-10-PCS; principal; 2019-11-17)
PROC: 3E0337Z Introduction of Electrolytic and Water Balance Substance into Peripheral Vein, Percutaneous Approach (ICD-10-PCS; 2019-11-17)
PROC: 3E033GC Introduction of Other Therapeutic Substance into Peripheral Vein, Percutaneous Approach (ICD-10-PCS; 2019-11-17)
PROC: 3E033GC Introduction of Other Therapeutic Substance into Peripheral Vein, Percutaneous Approach (ICD-10-PCS; 2019-11-17)
PROC: 3E033NZ Introduction of Analgesics, Hypnotics, Sedatives into Peripheral Vein, Percutaneous Approach (ICD-10-PCS; 2019-11-17)
DX: O99.89 Other specified diseases and conditions complicating pregnancy, childbirth and the puerperium (principal); E86.0 Dehydration; O98.512 Other viral diseases complicating pregnancy, second trimester; J10.1 Influenza due to other identified influenza virus with other respiratory manifestations; Z86.718 Personal history of other venous thrombosis and embolism; Z79.01 Long term (current) use of anticoagulants; Z3A.19 19 weeks gestation of pregnancy
CPT/HCPCS: 36415; 80053; 81003; 85025; 93005; 93010; 99284-25; J0131; J7030

== ENCOUNTER 2021-03-05 15:43 | Emergency (ER) | payer OTHER ==
[2021-03-05 16:12] VITALS: BP 122/83; PULSE 76; TEMP 98.5; BMI 35.9
[2021-03-05] MEDS ORDERED: LIDOCAINE 5% TOPICAL PATCH TP ONE (16:31)
[2021-03-05] MEDS ORDERED: diazePAM 5 MG TABLET PO ONE (16:31)
[2021-03-05] MEDS ORDERED: KETOROLAC TROMETHAMINE 30 MG/1 ML VIAL IM ONE (16:31)
[2021-03-05] MEDS ORDERED: LIDOCAINE 5% TOPICAL PATCH ONE (17:16)
[2021-03-05] MEDS ORDERED: diazePAM 5 MG TABLET ONE (17:17)
[2021-03-05] MEDS ORDERED: KETOROLAC TROMETHAMINE 30 MG/1 ML VIAL ONE (17:17)
[2021-03-06] MEDS ORDERED: LIDOCAINE PATCH REMOVAL MC SCH (04:30)
== END 2021-03-05 17:24 | disposition home or self-care (01) ==
LOC: JERFT 15:43
PROC: 3E0233Z Introduction of Anti-inflammatory into Muscle, Percutaneous Approach (ICD-10-PCS; principal; 2021-03-05)
DX: M62.838 Other muscle spasm (principal)
CPT/HCPCS: 99284-25

== ENCOUNTER 2021-04-08 11:48 | Emergency (ER) | payer OTHER ==
[2021-04-08 11:56] VITALS: TEMP 98.1; BMI 35.9
[2021-04-08] MEDS ORDERED: ACETAMINOPHEN 1000 MG/100 ML VIAL (NON FORMULARY) IVPB ONE (12:21)
[2021-04-08] MEDS ORDERED: SODIUM CHLORIDE 1,000 ML IV STA (12:21)
[2021-04-08] MEDS ORDERED: ONDANSETRON 4 MG/2 ML VIAL IVPUSH ONE ×2 (12:21→20:02)
[2021-04-08] MEDS ORDERED: ACETAMINOPHEN INJECTION 100 ML IVPB ONE (12:47)
[2021-04-08] MEDS ORDERED: ONDANSETRON 4 MG/2 ML VIAL ONE ×2 (12:47→20:05)
[2021-04-08 13:05] LABS: BASO % 0.4 % (0-2.0); EOS % 2.8 % (0-4.5); HEMATOCRIT 37.7 % (32.4-45.2); LYMPH % 22.3 % (8-40); MCH 30.4 pg (25.7-33.7); MCHC 34.5 g/dl (32.0-36.0); MEAN CELL VOLUME 88.1 fl (80-96); MEAN PLT VOLUME 8.1 fl (7.5-11.1); MONO % 5.1 % (3.8-10.2); NEUT % 69.4 % (42.8-82.8); PLATELET COUNT 346 K/MM3 (134-434); RBC 4.28 M/mm3 (3.60-5.2); WHITE BLOOD COUNT 7.4 K/mm3 (4.0-10.0)
[2021-04-08 13:11] LABS: PH,URINE 7.5 (5.0-8.0); URINE APPEARANCE CLOUDY; URINE BILIRUBIN NEGATIVE (NEGATIVE); URINE COLOR YELLOW; URINE GLUCOSE (UA) NEGATIVE (NEGATIVE); URINE KETONE NEGATIVE (NEGATIVE); URINE LEUK ESTERASE NEGATIVE (NEGATIVE); URINE NITRITE NEGATIVE (NEGATIVE); URINE PROTEIN NEGATIVE (NEGATIVE); URINE UROBILINOGEN 0.2 mg/dL (0.2-1.0)
[2021-04-08 13:13] LABS: HCG,QUALITATIVE URINE Negative
[2021-04-08 13:24] LABS: CALCIUM 9.1 mg/dL (8.5-10.1)
[2021-04-08 13:25] LABS: BLOOD UREA NITROGEN 12.5 mg/dL (7-18)
[2021-04-08 13:28] LABS: CREATININE 0.6 mg/dL (0.55-1.3)
[2021-04-08 13:29] LABS: BILIRUBIN,TOTAL 0.2 mg/dL (0.2-1); TOT PROT 7.6 g/dl (6.4-8.2)
[2021-04-08] MEDS ORDERED: morphine CARPU-JECT 4 MG/1 ML DISP.SYRIN IVPUSH ONE ×2 (14:21→17:09)
[2021-04-08] MEDS ORDERED: morphine SULFATE 4 MG/ML VIAL ONE ×2 (14:30→17:17)
[2021-04-08] MEDS ORDERED: KETOROLAC TROMETHAMINE 60 MG/2 ML VIAL IVPUSH ONE (19:51)
[2021-04-08] MEDS ORDERED: KETOROLAC TROMETHAMINE 15 MG/ML VIAL ONE (19:54)
[2021-04-08 20:46] VITALS: BP 114/74; PULSE 77
== END 2021-04-08 20:45 | disposition home or self-care (01) ==
LOC: JER 11:48
PROC: 3E033GC Introduction of Other Therapeutic Substance into Peripheral Vein, Percutaneous Approach (ICD-10-PCS; principal; 2021-04-08)
PROC: 3E0337Z Introduction of Electrolytic and Water Balance Substance into Peripheral Vein, Percutaneous Approach (ICD-10-PCS; principal; 2021-04-08)
DX: N73.9 Female pelvic inflammatory disease, unspecified (principal); M54.5 Low back pain
CPT/HCPCS: 36415; 72146-TC; 72148-TC; 74176-TC; 76830-TC; 80053; 81003; 84703; 85025; 87070; 87086; 87205; 87491; 87591; 99291; J0131

== ENCOUNTER 2021-06-08 18:24 | Emergency (ER) | payer OTHER ==
[2021-06-08 18:32] VITALS: BP 108/70; PULSE 89; TEMP 98.3; BMI 36.1
[2021-06-08] MEDS ORDERED: SODIUM CHLORIDE 1,000 ML IV STA (19:40)
[2021-06-08] MEDS ORDERED: ONDANSETRON 4 MG/2 ML VIAL IVPUSH ONE (19:41)
[2021-06-08] MEDS ORDERED: ACETAMINOPHEN 1000 MG/100 ML VIAL (NON FORMULARY) IVPB ONE (20:13)
[2021-06-08] MEDS ORDERED: ACETAMINOPHEN INJECTION 100 ML IVPB ONE (20:57)
[2021-06-08] MEDS ORDERED: ONDANSETRON 4 MG/2 ML VIAL ONE (20:57)
[2021-06-08 21:13] LABS: BASO % 1.3 % (0-2.0); EOS % 2.7 % (0-4.5); HEMATOCRIT 37.2 % (32.4-45.2); HEMOGLOBIN 12.6 GM/dL (10.7-15.3); LYMPH % 21.7 % (8-40); MCH 29.8 pg (25.7-33.7); MCHC 33.7 g/dl (32.0-36.0); MEAN CELL VOLUME 88.2 fl (80-96); MEAN PLT VOLUME 8.2 fl (7.5-11.1); MONO % 5.8 % (3.8-10.2); NEUT % 68.5 % (42.8-82.8); PLATELET COUNT 322 10^3/uL (134-434); RBC 4.22 M/mm3 (3.60-5.2); RDW 14.2 % (11.6-15.6); WHITE BLOOD COUNT 8.7 K/mm3 (4.0-10.0)
[2021-06-08 21:15] LABS: PH,URINE 5.5 (5.0-8.0); URINE APPEARANCE CLEAR; URINE BILIRUBIN NEGATIVE (NEGATIVE); URINE COLOR YELLOW; URINE GLUCOSE (UA) NEGATIVE (NEGATIVE); URINE KETONE NEGATIVE (NEGATIVE); URINE LEUK ESTERASE NEGATIVE (NEGATIVE); URINE NITRITE NEGATIVE (NEGATIVE); URINE PROTEIN NEGATIVE (NEGATIVE); URINE UROBILINOGEN 0.2 mg/dL (0.2-1.0)
[2021-06-08 21:17] LABS: HCG,QUALITATIVE URINE Negative
[2021-06-08] MEDS ORDERED: morphine CARPU-JECT 4 MG/1 ML DISP.SYRIN IVPUSH ONE (21:36)
[2021-06-08 21:41] LABS: CALCIUM 9.9 mg/dL (8.5-10.1)
[2021-06-08 21:42] LABS: ALBUMIN 4.1 g/dl (3.4-5.0); BLOOD UREA NITROGEN 13.8 mg/dL (7-18)
[2021-06-08 21:45] LABS: CREATININE 0.8 mg/dL (0.55-1.3)
[2021-06-08 21:46] LABS: BILIRUBIN,TOTAL 0.2 mg/dL (0.2-1); TOT PROT 7.7 g/dl (6.4-8.2)
[2021-06-08] MEDS ORDERED: morphine SULFATE 4 MG/ML VIAL ONE (22:04)
== END 2021-06-09 00:12 | disposition home or self-care (01) ==
LOC: JER 18:24
PROC: 3E0333Z Introduction of Anti-inflammatory into Peripheral Vein, Percutaneous Approach (ICD-10-PCS; principal; 2021-06-08)
PROC: 3E033NZ Introduction of Analgesics, Hypnotics, Sedatives into Peripheral Vein, Percutaneous Approach (ICD-10-PCS; 2021-06-08)
PROC: 3E033GC Introduction of Other Therapeutic Substance into Peripheral Vein, Percutaneous Approach (ICD-10-PCS; 2021-06-08)
PROC: 3E0337Z Introduction of Electrolytic and Water Balance Substance into Peripheral Vein, Percutaneous Approach (ICD-10-PCS; 2021-06-08)
DX: R10.11 Right upper quadrant pain (principal)
CPT/HCPCS: 36415; 74176-TC; 76705-TC; 80053; 81003; 83690; 84703; 85025; 87086; 99285-25; J0131

== ENCOUNTER 2022-04-13 09:41 | Emergency (ER) | payer OTHER ==
[2022-04-13 09:50] VITALS: TEMP 99.6; BMI 34.9
[2022-04-13] MEDS ORDERED: SODIUM CHLORIDE 1,000 ML IV STA (10:19)
[2022-04-13] MEDS ORDERED: ACETAMINOPHEN 1000 MG/100 ML BAG IVPB ONE (10:20)
[2022-04-13] MEDS ORDERED: ACETAMINOPHEN INJECTION 100 ML IVPB ONE (10:21)
[2022-04-13 10:29] LABS: HEMATOCRIT 36.3 % (32.4-45.2); HEMOGLOBIN 12.8 G/dL (10.7-15.3); MCH 30.8 pg (25.7-33.7); MCHC 35.2 g/dl (32.0-36.0); MEAN CELL VOLUME 87.5 fl (80-96); MEAN PLT VOLUME 7.7 fl (7.5-11.1); PLATELET COUNT 266.4 10^3/uL (134-434); RBC 4.15 10^6/uL (3.60-5.2); RDW 14.5 % (11.6-15.6); WHITE BLOOD COUNT 10.2 10^3/uL (4.0-10.8)
[2022-04-13 10:37] LABS: ALBUMIN 4.1 g/dl (3.4-5.0); BILIRUBIN,TOTAL 0.8 mg/dl (0.2-1); CALCIUM 8.9 mg/dl (8.5-10); CREATININE 0.6 mg/dl (0.55-1.3); TOT PROT 6.6 g/dl (6.4-8.2)
[2022-04-13 10:46] LABS: EPITHELIAL CELLS FEW /hpf
[2022-04-13 11:39] VITALS: BP 109/69; PULSE 89
== END 2022-04-13 12:16 | disposition home or self-care (01) ==
LOC: FER 09:41
PROC: 3E0333Z Introduction of Anti-inflammatory into Peripheral Vein, Percutaneous Approach (ICD-10-PCS; principal; 2022-04-13)
PROC: 3E0337Z Introduction of Electrolytic and Water Balance Substance into Peripheral Vein, Percutaneous Approach (ICD-10-PCS; 2022-04-13)
DX: M79.10 Myalgia, unspecified site (principal); R53.83 Other fatigue
CPT/HCPCS: 0241U-QW; 36415; 80053; 81003; 81015; 84703; 85025; 99284-25

== ENCOUNTER 2022-04-15 00:48 | Emergency (ER) | payer OTHER ==
[2022-04-15 01:02] VITALS: BP 138/84; PULSE 86; TEMP 98.6; BMI 34.9
[2022-04-15] MEDS ORDERED: DOXYCYCLINE HYCLATE 100 MG CAPSULE PO ONE ×2 (01:02→01:03)
== END 2022-04-15 01:21 | disposition home or self-care (01) ==
LOC: FER 00:48
DX: J18.9 Pneumonia, unspecified organism (principal)
CPT/HCPCS: 87040; 99283-25

== ENCOUNTER 2022-09-12 09:20 | Emergency (ER) | payer OTHER ==
[2022-09-12 09:44] VITALS: BP 126/74; PULSE 88; RESP 20; TEMP 98.2; BMI 35.0
[2022-09-12 12:56] LABS: THROAT:GRP A STREP NOT DETECTED (NOTDETECTED)
== END 2022-09-12 09:56 | disposition home or self-care (01) ==
LOC: FER 09:20
DX: J06.9 Acute upper respiratory infection, unspecified (principal)
CPT/HCPCS: 0241U-QW; 87651; 99283-25

== ENCOUNTER 2023-01-07 11:51 | Emergency (ER) | payer OTHER ==
[2023-01-07 12:01] VITALS: BP 112/66; PULSE 89; RESP 20; TEMP 99.6; BMI 35.4
[2023-01-07] MEDS ORDERED: METOCLOPRAMIDE HCL INJECTION 10 MG/2 ML VIAL IVPB ONE (12:34)
[2023-01-07] MEDS ORDERED: SODIUM CHLORIDE 0.9% 1000 ML INFUS.BAG IV ONE (12:34)
[2023-01-07] MEDS ORDERED: METOCLOPRAMIDE HCL INJECTION 10 MG/2 ML VIAL ONE (12:40)
== END 2023-01-07 15:02 | disposition home or self-care (01) ==
LOC: FER 11:51
PROC: 3E033GC Introduction of Other Therapeutic Substance into Peripheral Vein, Percutaneous Approach (ICD-10-PCS; principal; 2023-01-07)
DX: K52.9 Noninfective gastroenteritis and colitis, unspecified (principal)
CPT/HCPCS: 96374; 96375; 99284-25